=== PATIENT | male | born 1985 | race Hispanic/Latino ===

== ENCOUNTER 2022-09-16 11:46 | Emergency (ER) | payer MEDICAID, OTHER ==
[~2022-09-16] VITALS: Ht 175.3 cm; Wt 68.0 kg
[2022-09-16 11:47] VITALS: BP 129/77
[2022-09-16] MEDS ORDERED: BACITRACIN 1 EACH PACKET TP ONE (13:00)
[2022-09-16] MEDS ORDERED: NEOMY SULF/BACITRA/POLYMYXIN B 1 EACH PACKET TP ONE (13:00)
[2022-09-16] MEDS ORDERED: ACETAMINOPHEN WITH CODEINE 1 TAB TAB PO ONE (13:00)
== END 2022-09-16 13:09 | disposition home or self-care (01) ==
LOC: EDH 11:46
DX: S00.01XA Abrasion of scalp, initial encounter (principal); E11.9 Type 2 diabetes mellitus without complications; I10 Essential (primary) hypertension; F17.200 Nicotine dependence, unspecified, uncomplicated; R51.9 Headache, unspecified; Z98.890 Other specified postprocedural states; T75.4XXA Electrocution, initial encounter; Y93.89 Activity, other specified; Y92.89 Other specified places as the place of occurrence of the external cause; Y99.8 Other external cause status